=== PATIENT | female | born 1955 | race Caucasian/White ===

== ENCOUNTER 2016-12-25 12:25 | Emergency (ER) | payer MEDICARE, OTHER ==
[~2016-12-25] VITALS: Ht 147.3 cm; Wt 65.8 kg
[~2016-12-25 12:25] MED LIST: 'PARAFON FORTE500 M1 PO; AMARYL2 MG PO; AMBIEN10 M1 PO; CALCIUM WITH D1 CTB PO; CATAFLAM50 MG PO; CLARITIN10 MG PO; Carafate1 GM PO; DOXYCYCLINE100 M3 PO; DUONEB 3 MG/3 ML3 M1 INH; ENTERIC ASPIRI325 MG PO; EXFORGE 10 MG-11 TAB PO; FLEXERIL10 MG PO; FLEXERIL5 MG PO; HYDROCODONE BIT1 T11 PO; JINTELI 1 MG-51 EACH PO; MEDROL DOSEPAK4 MG PO; MOTRIN800 MG; MOTRIN800 MG PO; NORCO 5-325 TA1 EACH PO; PREDNICOT20 MG PO; PREDNISONE10 MG PO; PREDNISONE20 M1 PO; PREMPRO 0.3 MG-1 TA1 PO; PREMPRO 0.3 MG-1 TAB PO; PREMPRO PO; PRENATAL1 TA2; PRILOSEC20 MG PO; QVAR0.08 MG/AC INH; REGLAN10 MG; REGLAN5 MG PO; ROBAXIN750 MG PO; ROBITUSSIN AC 110 ML PO; ROBITUSSIN DM 105 ML PO; SINGULAIR10 MG PO; SPIRIVA -- 3018 MCG PO; SYMBICORT1 AE1 INH; SYNTHROID0.025 MG PO; TORADOL10 MG PO; TRAMADOL HCL50 MG PO; VIBRAMYCIN100 MG PO; VICODIN 5/500 505 MG PO; VICODIN 500 MG-1 TAB; VICODIN 500 MG-1 TAB PO; VITAMIN D50000 I3 PO; VITAMIN D50000 IU PO; VOLTAREN50 M1 PO; Vicodin 5/500 505 MG PO; ZITHROMAX Z PA250 MG PO
[2016-12-25 12:30] VITALS: BP 134/69
[2016-12-25] MEDS ORDERED: TESSALON PERLE100 M1 PO (14:12)
[2016-12-25] MEDS ORDERED: ZITHROMAX250 MG PO (14:12)
[2016-12-25] MEDS ORDERED: PREDNISONE20 M1 PO (14:12)
== END 2016-12-25 14:17 | disposition home or self-care (01) ==
LOC: ED 12:25
DX: H66.91 Otitis media, unspecified, right ear (principal); J20.9 Acute bronchitis, unspecified; F17.200 Nicotine dependence, unspecified, uncomplicated; J44.9 Chronic obstructive pulmonary disease, unspecified; Z88.0 Allergy status to penicillin; Z88.1 Allergy status to other antibiotic agents; Z88.6 Allergy status to analgesic agent; Z79.82 Long term (current) use of aspirin; Z79.899 Other long term (current) drug therapy

== ENCOUNTER → 2017-07-02 | Outpatient (CLI) | payer MEDICARE, OTHER ==
[~2017-07-02] MED LIST changes: +TESSALON PERLE100 M1 PO; +ZITHROMAX250 MG PO
[2017-07-02 12:50] LABS: BASO # 0.1 10*3/uL (0.0-0.1); BASO % 0.5 % (0.0-1.0); EOS # 0.3 10*3/uL (0.0-0.4); EOS % 2.3 % (1.0-4.0); HEMATOCRIT 45.7 % (37.0-47.0); HEMOGLOBIN 15.6 g/dl (12.0-16.0); LYMPH # 4.2 10*3/uL (1.3-4.4); LYMPH % 31.5 % (27.0-41.0); MEAN CELL VOLUME 92.3 fl (81.0-99.0); MEAN CORPUSCULAR HGB 31.5 pg (27.0-31.0); MEAN CORPUSCULAR HGB CONC 34.1 g/dl (33.0-37.0); MEAN PLATELET VOLUME 10.7 fl (9.6-12.3); MONO # 0.7 10*3/uL (0.1-1.0); MONO % 4.9 % (3.0-9.0); NEUT % 60.3 % (47.0-73.0); PLATELET COUNT AUTOMATED 452 10*3/uL (130-400); RED BLOOD COUNT 4.95 10*6/uL (4.10-5.10); RED CELL DISTRI WIDTH 12.7 % (0-14.5); WHITE BLOOD COUNT 13.3 10*3/uL (4.8-10.8)
== END | disposition home or self-care (01) ==
LOC: LAB 12:32
PROVIDERS: Physician Assistant
DX: M51.86 Other intervertebral disc disorders, lumbar region (principal); M77.8 Other enthesopathies, not elsewhere classified; G89.29 Other chronic pain; M25.551 Pain in right hip

== ENCOUNTER → 2017-12-30 | Outpatient (CLI) | payer MEDICARE, OTHER | END | disposition home or self-care (01) | LOC: LAB 13:40 | PROVIDERS: Internal Medicine | DX: D64.9 Anemia, unspecified (principal) ==

== ENCOUNTER 2019-01-24 16:40 | Emergency (ER) | payer MEDICARE, OTHER ==
[~2019-01-24] VITALS: Ht 147.3 cm; Wt 59.9 kg
--- NOTE | ~2019-01-24 | EKG ---
[place], [place] ELECTROCARDIOGRAM REPORT NAME: REBEKAH MEDINA UNIT #: [id number] ROOM: DOCTOR: EPIPHANY DRAFT REPORT BIRTHDATE: [birth year] [facility] Test Date: 2019-01-24 Test Time: 17:24:31 Pat Name: REBEKAH MEDINA Department: Room: Gender: F Spares Scheduler: 20 : 1955 Requested By: BRIGIDA READ Order Number: [id number] Reading MD: Gilbert Olivier MD Measurements Intervals [place] Rate: 79 P: 46 MO: 160 QRS: 18 QRSD: 70 T: 10 QT: 347 QTc: 398 Interpretive Statements Sinus rhythm Low voltage, precordial leads Baseline wander in lead(s) V6 Electronically Signed On 01-26-2019 14:45:42 PDT by Gilbert Olivier MD CM:EKGRPT:ELECTROCARDIOGRAM REPORT 1724 [id number] BRIGIDA READ EPIPHANY DRAFT REPORT BRIGIDA READ
[2019-01-24 16:41] VITALS: BP 134/53
[2019-01-24 17:00] LABS: BASO # 0.1 10*3/uL (0.0-0.1); BASO % 0.5 % (0.0-1.0); EOS # 0.3 10*3/uL (0.0-0.4); EOS % 1.8 % (1.0-4.0); HEMATOCRIT 45.5 % (37.0-47.0); HEMOGLOBIN 15.2 g/dl (12.0-16.0); LYMPH # 3.7 10*3/uL (1.3-4.4); LYMPH % 25.1 % (27.0-41.0); MEAN CELL VOLUME 92.1 fl (81.0-99.0); MEAN CORPUSCULAR HGB 30.8 pg (27.0-31.0); MEAN CORPUSCULAR HGB CONC 33.4 g/dl (33.0-37.0); MEAN PLATELET VOLUME 9.9 fl (9.6-12.3); MONO # 0.6 10*3/uL (0.1-1.0); NEUT % 68.2 % (47.0-73.0); PLATELET COUNT AUTOMATED 423 10*3/uL (130-400); RED BLOOD COUNT 4.94 10*6/uL (4.10-5.10); RED CELL DISTRI WIDTH 12.6 % (0-14.5); WHITE BLOOD COUNT 14.6 10*3/uL (4.8-10.8)
[2019-01-24 17:13] LABS: ALBUMIN 3.7 gm/dl (3.1-4.5); ALKALINE PHOSPHATASE 113 U/L (45-117); BUN 7 mg/dl (7-24); CHLORIDE 99 mmol/L (98-107); CREATININE 0.92 mg/dL (0.55-1.02); LIPASE 85 U/L (73-393); POTASSIUM 3.4 mmol/L (3.5-5.1); SGOT/AST 9 IU/L (3-35); SGPT/ALT 24 U/L (12-78); SODIUM 136 mmol/L (136-145); TOTAL PROTEIN 7.6 gm/dL (6.4-8.2)
[2019-01-24 18:30] LABS: BILIRUBIN NEGATIVE (NEGATIVE); BLOOD NEGATIVE (NEGATIVE); CLARITY CLEAR (CLEAR); COLOR YELLOW (YELLOW); GLUCOSE NEGATIVE (NEGATIVE); KETONE NEGATIVE (NEGATIVE); LEUKO ESTERASE NEGATIVE (NEGATIVE); NITRITE NEGATIVE (NEGATIVE); PH 5.5 (5.0-9.0); SPECIFIC GRAVITY <= 1.005 (1.005-1.030); UROBILINOGEN 0.2 E.U./dl (0.2-1.0)
[2019-01-24 18:38] LABS: BACTERIA 1+; WBC 0-2 wbc/hpf (0-5)
[2019-01-24] MEDS ORDERED: ZITHROMAX250 MG PO (19:17)
[2019-01-24] MEDS ORDERED: PREDNISONE50 MG PO (19:17)
[2019-01-24] MEDS ORDERED: TESSALON PERLE100 M1 PO (19:17)
== END 2019-01-24 19:23 | disposition home or self-care (01) ==
LOC: ED 16:40
PROVIDERS: Nurse Practitioner Family
DX: J20.9 Acute bronchitis, unspecified (principal); J44.9 Chronic obstructive pulmonary disease, unspecified; F17.210 Nicotine dependence, cigarettes, uncomplicated; Z79.899 Other long term (current) drug therapy; Z79.82 Long term (current) use of aspirin; Z88.6 Allergy status to analgesic agent; Z88.0 Allergy status to penicillin; Z88.1 Allergy status to other antibiotic agents

== ENCOUNTER → 2019-09-13 | Outpatient (CLI) | payer MEDICARE, OTHER ==
[~2019-09-13] MED LIST changes: +PREDNISONE50 MG PO
== END | disposition home or self-care (01) ==
LOC: US 07:25
DX: R10.32 Left lower quadrant pain (principal)

== ENCOUNTER → 2020-03-06 | Outpatient (CLI) | payer MEDICARE | END | disposition home or self-care (01) | LOC: US 08:05 | DX: R10.2 Pelvic and perineal pain (principal) ==

== ENCOUNTER → 2020-07-17 | Outpatient (CLI) | payer MEDICARE | END | disposition home or self-care (01) | LOC: MAMMO 14:30 | PROVIDERS: ATTEND Physician Assistant | DX: Z12.31 Encounter for screening mammogram for malignant neoplasm of breast (principal); E03.9 Hypothyroidism, unspecified ==

== ENCOUNTER 2021-01-24 21:22 | Emergency (ER) | payer MEDICARE ==
[~2021-01-24] VITALS: Ht 147.3 cm; Wt 54.9 kg
[2021-01-24 21:52] VITALS: BP 125/65
[2021-01-24 23:05] LABS: HEMATOCRIT 41.9 % (37.0-47.0); MEAN CELL VOLUME 87.8 fl (81.0-99.0); MEAN CORPUSCULAR HGB 30.6 pg (27.0-31.0); MEAN CORPUSCULAR HGB CONC 34.8 g/dl (33.0-37.0); MEAN PLATELET VOLUME 9.9 fl (9.6-12.3); PLATELET COUNT AUTOMATED 448 10*3/uL (130-400); RED BLOOD COUNT 4.77 10*6/uL (4.10-5.10); WHITE BLOOD COUNT 16.6 10*3/uL (4.8-10.8)
[2021-01-24 23:40] LABS: ATYPICAL LYMPHS 4 % (0-0); PLATELET SUFFICIENCY HIGH (NORMAL); TOTAL CELLS COUNTED 100 #CELLS
[2021-01-24 23:41] LABS: BURR CELLS FEW
[2021-01-25 00:09] LABS: ALBUMIN 3.3 gm/dl (3.1-4.5); ALKALINE PHOSPHATASE 95 U/L (45-117); BUN 6 mg/dl (7-24); CHLORIDE 95 mmol/L (98-107); CREATININE 0.73 mg/dL (0.55-1.02); POTASSIUM 2.5 mmol/L (3.5-5.1); SGOT/AST 11 IU/L (3-35); SGPT/ALT 19 U/L (12-78); SODIUM 129 mmol/L (136-145); TOTAL PROTEIN 6.9 gm/dL (6.4-8.2)
[2021-01-25 00:20] LABS: BILIRUBIN Negative (Negative); BLOOD Negative (Negative); CLARITY Clear (Clear); COLOR Yellow (Yellow); GLUCOSE Negative (Negative); KETONE Negative (Negative); LEUKO ESTERASE Negative (Negative); NITRITE Negative (Negative); PH 6.5 (4.5-8.0); SPECIFIC GRAVITY <= 1.005 (1.001-1.030); UROBILINOGEN 0.2 E.U./dl (0.0-1.0)
[2021-01-25 00:56] LABS: RBC 0-2 rbc/hpf (0-2)
[2021-01-25 00:57] LABS: BACTERIA TRACE; EPITHELIAL CELLS 0-2
[2021-01-25] MEDS ORDERED: KLOR-CON M2020 ME1 PO (01:54)
== END 2021-01-25 02:47 | disposition left against medical advice (07) ==
LOC: ED 21:22
PROVIDERS: Emergency Medicine
DX: G43.909 Migraine, unspecified, not intractable, without status migrainosus (principal); E87.6 Hypokalemia; Z88.1 Allergy status to other antibiotic agents; Z88.5 Allergy status to narcotic agent; Z88.0 Allergy status to penicillin; Z79.2 Long term (current) use of antibiotics; Z79.899 Other long term (current) drug therapy; Z79.82 Long term (current) use of aspirin; Z98.890 Other specified postprocedural states; Z98.51 Tubal ligation status

== ENCOUNTER 2021-02-18 14:42 | Emergency (ER) | payer OTHER ==
[~2021-02-18] VITALS: Ht 147.3 cm; Wt 54.9 kg
[~2021-02-18 14:42] MED LIST changes: +KLOR-CON M2020 ME1 PO
[2021-02-18 14:54] VITALS: BP 120/50
[2021-02-18] MEDS ORDERED: PREDNISONE20 M1 PO (16:20)
== END 2021-02-18 16:19 | disposition home or self-care (01) ==
LOC: ED 14:42
DX: L25.1 Unspecified contact dermatitis due to drugs in contact with skin (principal); T49.0X5A Adverse effect of local antifungal, anti-infective and anti-inflammatory drugs, initial encounter; Z88.1 Allergy status to other antibiotic agents; Z88.5 Allergy status to narcotic agent; Z88.0 Allergy status to penicillin; Z79.2 Long term (current) use of antibiotics; Z79.899 Other long term (current) drug therapy; Z79.82 Long term (current) use of aspirin; Z98.890 Other specified postprocedural states; Z90.49 Acquired absence of other specified parts of digestive tract; Z98.51 Tubal ligation status; Y92.89 Other specified places as the place of occurrence of the external cause

== ENCOUNTER 2022-04-28 13:07 | Emergency (ER) | payer OTHER ==
[~2022-04-28] VITALS: Ht 147.3 cm; Wt 48.5 kg
[2022-04-28 13:09] VITALS: BP 130/67
== END 2022-04-28 18:46 | disposition left against medical advice (07) ==
LOC: ED 13:07
DX: R42 Dizziness and giddiness (principal); Z53.21 Procedure and treatment not carried out due to patient leaving prior to being seen by health care provider

== ENCOUNTER → 2022-05-14 | Outpatient (CLI) | payer OTHER | END | disposition home or self-care (01) | LOC: MAMMO 04-29 15:00 | PROVIDERS: ATTEND Physician Assistant | DX: Z12.31 Encounter for screening mammogram for malignant neoplasm of breast (principal); N64.89 Other specified disorders of breast ==

== ENCOUNTER 2022-06-22 13:23 | Emergency (ER) | payer OTHER ==
[~2022-06-22] VITALS: Ht 147.3 cm; Wt 49.0 kg
[2022-06-22 13:55] VITALS: BP 128/77
[2022-06-22] MEDS ORDERED: HYDROCODONE-AC1 EAC2 PO (13:57)
[2022-06-22 14:44] LABS: BASO % 0.3 % (0.0-1.0); EOS # 0.6 10*3/uL (0.0-0.4); EOS % 5.4 % (1.0-4.0); HEMATOCRIT 42.1 % (37.0-47.0); LYMPH % 19.7 % (27.0-41.0); MEAN CELL VOLUME 103.7 fl (81.0-99.0); MEAN CORPUSCULAR HGB 34.5 pg (27.0-31.0); MEAN CORPUSCULAR HGB CONC 33.3 g/dl (33.0-37.0); MEAN PLATELET VOLUME 9.6 fl (9.6-12.3); MONO # 1.3 10*3/uL (0.1-1.0); MONO % 12.8 % (3.0-9.0); NEUT # 6.3 10*3/uL (2.3-7.9); NEUT % 61.2 % (47.0-73.0); PLATELET COUNT AUTOMATED 475 10*3/uL (130-400); RED BLOOD COUNT 4.06 10*6/uL (4.10-5.10); RED CELL DISTRI WIDTH 17.7 % (0-14.5); WHITE BLOOD COUNT 10.2 10*3/uL (4.8-10.8)
[2022-06-22 14:57] LABS: ACT PARTIAL THROMBO TIME 28.6 SECONDS (20.0-32.1)
[2022-06-22 15:00] LABS: ALKALINE PHOSPHATASE 131 U/L (45-117); BUN 4 mg/dl (7-24); CHLORIDE 104 mmol/L (98-107); CREATININE 0.77 mg/dL (0.55-1.02); LIPASE 59 U/L (73-393); POTASSIUM 2.6 mmol/L (3.5-5.1); SGOT/AST 27 IU/L (3-35); SGPT/ALT 37 U/L (12-78); SODIUM 141 mmol/L (136-145); TOTAL PROTEIN 7.1 gm/dL (6.4-8.2)
[2022-06-22 16:09] LABS: BILIRUBIN Negative (Negative); BLOOD Negative (Negative); CLARITY Clear (Clear); COLOR Yellow (Yellow); GLUCOSE 2+ (Negative); KETONE Negative (Negative); LEUKO ESTERASE Negative (Negative); NITRITE Negative (Negative); SPECIFIC GRAVITY <= 1.005 (1.001-1.030); UROBILINOGEN 0.2 E.U./dl (0.0-1.0)
[2022-06-22 16:40] LABS: BACTERIA TRACE; YEAST TRACE
[2022-06-22] MEDS ORDERED: POTASSIUM CHLO20 ME3 PO (17:08)
[2022-06-22] MEDS ORDERED: METRONIDAZOLE500 M1 PO (17:08)
== END 2022-06-22 18:31 | disposition left against medical advice (07) ==
LOC: ED 13:23 → EDHOLD 16:13 → ED 16:13
PROVIDERS: Emergency Medicine
DX: K52.9 Noninfective gastroenteritis and colitis, unspecified (principal); E87.6 Hypokalemia; Z88.8 Allergy status to other drugs, medicaments and biological substances; Z88.0 Allergy status to penicillin; Z88.1 Allergy status to other antibiotic agents; Z79.899 Other long term (current) drug therapy; Z79.82 Long term (current) use of aspirin; G43.909 Migraine, unspecified, not intractable, without status migrainosus; Z98.890 Other specified postprocedural states; Z90.49 Acquired absence of other specified parts of digestive tract; Z98.51 Tubal ligation status

== ENCOUNTER 2022-09-04 13:59 | Emergency (ER) | payer OTHER ==
[~2022-09-04] VITALS: Ht 147.3 cm; Wt 40.8 kg
[~2022-09-04 13:59] MED LIST changes: +HYDROCODONE-AC1 EAC2 PO; +METRONIDAZOLE500 M1 PO; +POTASSIUM CHLO20 ME3 PO
[2022-09-04 14:35] VITALS: BP 99/63
[2022-09-04 15:39] LABS: HEMATOCRIT 40.6 % (37.0-47.0); MEAN CELL VOLUME 100.7 fl (81.0-99.0); MEAN CORPUSCULAR HGB CONC 33.7 g/dl (33.0-37.0); MEAN PLATELET VOLUME 10.2 fl (9.6-12.3); PLATELET COUNT AUTOMATED 164 10*3/uL (130-400); RED CELL DISTRI WIDTH 13.4 % (0-14.5); WHITE BLOOD COUNT 2.9 10*3/uL (4.8-10.8)
[2022-09-04 15:41] LABS: MANUAL DIFF REFLEX YES; RED BLOOD COUNT 4.05 10*6/uL (4.10-5.10)
[2022-09-04 16:10] LABS: PLATELET SUFFICIENCY NORMAL (NORMAL); TOTAL CELLS COUNTED 100 #CELLS
[2022-09-04 16:12] LABS: BURR CELLS FEW
[2022-09-04 16:13] LABS: OVALOCYTES FEW
[2022-09-04 16:38] LABS: ALKALINE PHOSPHATASE 214 U/L (46-116); BUN 10 mg/dl (9-23); CHLORIDE 100 mmol/L (98-107); POTASSIUM 4.5 mmol/L (3.4-5.1); SGPT/ALT 44 U/L (10-49); TOTAL PROTEIN 7.4 gm/dL (6.0-8.0)
== END 2022-09-04 16:41 | disposition left against medical advice (07) ==
LOC: ED 13:59
PROVIDERS: Student in an Organized Health Care Education/Training Program
DX: R42 Dizziness and giddiness (principal); R06.02 Shortness of breath; Z88.1 Allergy status to other antibiotic agents; Z88.0 Allergy status to penicillin; Z88.8 Allergy status to other drugs, medicaments and biological substances; Z79.899 Other long term (current) drug therapy; Z79.82 Long term (current) use of aspirin; Z98.890 Other specified postprocedural states; Z98.51 Tubal ligation status; Z90.49 Acquired absence of other specified parts of digestive tract

== ENCOUNTER 2022-11-08 14:45 | Emergency (ER) | payer OTHER ==
[~2022-11-08] VITALS: Ht 149.8 cm; Wt 44.9 kg
[2022-11-08 14:47] VITALS: BP 104/57
[2022-11-08 16:01] LABS: MEAN CELL VOLUME 105.6 fl (81.0-99.0); MEAN CORPUSCULAR HGB 35.7 pg (27.0-31.0); MEAN CORPUSCULAR HGB CONC 33.8 g/dl (33.0-37.0); MEAN PLATELET VOLUME 10.3 fl (9.6-12.3); PLATELET COUNT AUTOMATED 41 10*3/uL (130-400); RED BLOOD COUNT 1.96 10*6/uL (4.10-5.10); RED CELL DISTRI WIDTH 20.2 % (0-14.5)
[2022-11-08 16:04] LABS: HEMATOCRIT 20.7 % (37.0-47.0); WHITE BLOOD COUNT 1.3 10*3/uL (4.8-10.8)
[2022-11-08 16:05] LABS: MANUAL DIFF REFLEX YES
[2022-11-08 16:13] LABS: ACT PARTIAL THROMBO TIME 29.1 SECONDS (20.0-32.1)
[2022-11-08 16:20] LABS: ALKALINE PHOSPHATASE 63 U/L (46-116); BUN 9 mg/dl (9-23); CHLORIDE 110 mmol/L (98-107); LIPASE 27 U/L (12-53); POTASSIUM 2.9 mmol/L (3.4-5.1); SGPT/ALT 10 U/L (10-49); TOTAL PROTEIN 5.9 gm/dL (6.0-8.0)
[2022-11-08 16:24] LABS: ATYPICAL LYMPHS 1 % (0-0); PLATELET SUFFICIENCY LOW (NORMAL); TOTAL CELLS COUNTED 100 #CELLS
[2022-11-08 16:25] LABS: ACANTHOCYTES FEW; BURR CELLS FEW
[2022-11-08 16:26] LABS: OVALOCYTES FEW
[2022-11-08 17:40] LABS: BILIRUBIN Negative (Negative); BLOOD Negative (Negative); CLARITY Clear (Clear); COLOR Yellow (Yellow); GLUCOSE 3+ (Negative); KETONE Negative (Negative); LEUKO ESTERASE Negative (Negative); NITRITE Negative (Negative); PH 6.5 (4.5-8.0); SPECIFIC GRAVITY 1.015 (1.001-1.030); UROBILINOGEN 0.2 E.U./dl (0.0-1.0)
[2022-11-08 18:14] LABS: EPITHELIAL CELLS 21-30; RBC 0-2 rbc/hpf (0-2); WBC 0-2 wbc/hpf (0-5)
[2022-11-08] MEDS ORDERED: METRONIDAZOLE500 M1 PO (19:25)
[2022-11-08] MEDS ORDERED: OMNICEF300 MG PO (19:25)
[2022-11-08] MEDS ORDERED: PREDNISONE20 M1 PO (19:26)
[2022-11-08] MEDS ORDERED: PROVENTIL HFA6.7 GM INH (19:26)
== END 2022-11-08 20:03 | disposition home or self-care (01) ==
LOC: ED 14:45
PROVIDERS: Physician Assistant
DX: J44.9 Chronic obstructive pulmonary disease, unspecified (principal); I10 Essential (primary) hypertension; M19.90 Unspecified osteoarthritis, unspecified site; K21.9 Gastro-esophageal reflux disease without esophagitis; E11.9 Type 2 diabetes mellitus without complications; Z88.1 Allergy status to other antibiotic agents; Z88.5 Allergy status to narcotic agent; Z88.0 Allergy status to penicillin; Z88.8 Allergy status to other drugs, medicaments and biological substances; Z98.890 Other specified postprocedural states

== ENCOUNTER 2023-06-01 15:27 | Emergency (ER) | payer OTHER ==
[~2023-06-01] VITALS: Wt 42.2 kg
[~2023-06-01 15:27] MED LIST changes: +OMNICEF300 MG PO; +PROVENTIL HFA6.7 GM INH
[2023-06-01 16:33] LABS: BASO # 0.1 10*3/uL (0.0-0.1); BASO % 0.7 % (0.0-1.0); EOS # 0.8 10*3/uL (0.0-0.4); EOS % 9.4 % (1.0-4.0); HEMATOCRIT 42.7 % (37.0-47.0); LYMPH # 2.7 10*3/uL (1.3-4.4); LYMPH % 30.9 % (27.0-41.0); MEAN CELL VOLUME 97.3 fl (81.0-99.0); MEAN CORPUSCULAR HGB 32.3 pg (27.0-31.0); MEAN CORPUSCULAR HGB CONC 33.3 g/dl (33.0-37.0); MEAN PLATELET VOLUME 9.8 fl (9.6-12.3); MONO # 0.5 10*3/uL (0.1-1.0); NEUT # 4.6 10*3/uL (2.3-7.9); NEUT % 52.8 % (47.0-73.0); PLATELET COUNT AUTOMATED 325 10*3/uL (130-400); RED BLOOD COUNT 4.39 10*6/uL (4.10-5.10); RED CELL DISTRI WIDTH 15.7 % (0-14.5); WHITE BLOOD COUNT 8.8 10*3/uL (4.8-10.8)
[2023-06-01] MEDS ORDERED: KEYTRUDA100 MG/4 M IV (16:40)
[2023-06-01] MEDS ORDERED: OYSTER SHELL PO (16:49)
[2023-06-01] MEDS ORDERED: PEPCID20 MG PO (16:50)
[2023-06-01] MEDS ORDERED: Synthroid,Levo50 MCG PO (16:51)
[2023-06-01] MEDS ORDERED: SENNA8.6 MG PO (16:51)
[2023-06-01] MEDS ORDERED: ASPIRIN81 M1 PO (16:52)
[2023-06-01] MEDS ORDERED: LIPITOR40 MG PO (16:52)
[2023-06-01] MEDS ORDERED: FARXIGA5 M1 PO (16:53)
[2023-06-01] MEDS ORDERED: VITAMIN D3125 MC1 PO (16:55)
[2023-06-01 16:58] LABS: ALKALINE PHOSPHATASE 109 U/L (46-116); BUN 6 mg/dl (9-23); CHLORIDE 108 mmol/L (98-107); POTASSIUM 2.5 mmol/L (3.4-5.1); TOTAL PROTEIN 6.9 gm/dL (6.0-8.0)
[2023-06-01 16:59] LABS: SGPT/ALT < 7 U/L (10-49)
[2023-06-01 17:26] VITALS: BP 158/49
[2023-06-01] MEDS ORDERED: KLOR-CON M2020 ME1 PO (17:30)
[2023-06-01] MEDS ORDERED: NORVASC10 MG PO (17:30)
== END 2023-06-01 17:48 | disposition home or self-care (01) ==
LOC: ED 15:27
PROVIDERS: Emergency Medicine
DX: I16.0 Hypertensive urgency (principal); E87.6 Hypokalemia; J44.9 Chronic obstructive pulmonary disease, unspecified; M19.90 Unspecified osteoarthritis, unspecified site; K21.9 Gastro-esophageal reflux disease without esophagitis; E11.9 Type 2 diabetes mellitus without complications; Z88.8 Allergy status to other drugs, medicaments and biological substances; Z88.0 Allergy status to penicillin; Z88.5 Allergy status to narcotic agent; Z98.890 Other specified postprocedural states

== ENCOUNTER → 2023-06-08 | Outpatient (CLI) | payer OTHER ==
[~2023-06-08] MED LIST changes: +ASPIRIN81 M1 PO; +FARXIGA5 M1 PO; +KEYTRUDA100 MG/4 M IV; +LIPITOR40 MG PO; +NORVASC10 MG PO; +OYSTER SHELL PO; +PEPCID20 MG PO; +SENNA8.6 MG PO; +Synthroid,Levo50 MCG PO; +VITAMIN D3125 MC1 PO
[2023-06-08 16:25] LABS: BASO % 0.3 % (0.0-1.0); EOS # 1.1 10*3/uL (0.0-0.4); EOS % 11.6 % (1.0-4.0); HEMATOCRIT 46.7 % (37.0-47.0); LYMPH # 3.4 10*3/uL (1.3-4.4); LYMPH % 38.1 % (27.0-41.0); MEAN CELL VOLUME 99.6 fl (81.0-99.0); MEAN CORPUSCULAR HGB CONC 33.2 g/dl (33.0-37.0); MEAN PLATELET VOLUME 9.5 fl (9.6-12.3); MONO # 0.6 10*3/uL (0.1-1.0); MONO % 6.3 % (3.0-9.0); NEUT # 3.9 10*3/uL (2.3-7.9); NEUT % 43.5 % (47.0-73.0); PLATELET COUNT AUTOMATED 336 10*3/uL (130-400); RED BLOOD COUNT 4.69 10*6/uL (4.10-5.10); RED CELL DISTRI WIDTH 15.5 % (0-14.5)
== END ==
LOC: LAB 15:59
PROVIDERS: ATTEND Optometrist
DX: H49.21 Sixth [abducent] nerve palsy, right eye (principal)

== ENCOUNTER → 2023-08-05 | Outpatient (CLI) | payer OTHER | END | disposition home or self-care (01) | LOC: MAMMO 05-18 11:00 | PROVIDERS: ATTEND Nurse Practitioner Women's Health | DX: Z12.31 Encounter for screening mammogram for malignant neoplasm of breast (principal) ==

== ENCOUNTER → 2025-05-29 | Outpatient (CLI) | payer OTHER | END | disposition home or self-care (01) | LOC: MAMMO 05-03 10:30 | PROVIDERS: ATTEND Physician Assistant | DX: Z12.31 Encounter for screening mammogram for malignant neoplasm of breast (principal) ==